=== PATIENT | female | born 1970 | race African-American/Black ===

== ENCOUNTER 2017-07-07 09:31 | Emergency (ER) | payer SELFPAY ==
--- NOTE | 2017-07-07 10:31 | RAD ---
PORTABLE CHEST 1 VIEW: Date: 07/07/17 Time: 1016 hours HISTORY: Cough. FINDINGS: The heart size is normal. The lungs are well expanded without focal areas of consolidation, pneumotho rax, or pleural effusions. IMPRESSION: No radiographic evidence of acute cardiopulmonary process. POS: [facility]
== END 2017-07-07 11:11 | disposition home or self-care (01) ==
LOC: ERS 09:31
DX: J18.9 Pneumonia, unspecified organism (principal); B34.9 Viral infection, unspecified; I10 Essential (primary) hypertension; F32.9 Major depressive disorder, single episode, unspecified; F17.210 Nicotine dependence, cigarettes, uncomplicated; Z79.899 Other long term (current) drug therapy
CPT/HCPCS: 71010

== ENCOUNTER 2020-10-29 10:34 | Outpatient (CLI) | payer OTHER | END 2020-10-29 10:35 | disposition home or self-care (01) | LOC: BICRAD 10:34 | PROVIDERS: ATTEND Internal Medicine | DX: Z02.71 Encounter for disability determination (principal) | CPT/HCPCS: 71046 ==